=== PATIENT | female | born 1985 | race Caucasian/White ===

== ENCOUNTER 2022-08-22 16:29 | Emergency (ER) | payer OTHER ==
[~2022-08-22] VITALS: Ht 167.6 cm; Wt 93.4 kg
--- NOTE | 2022-08-22 16:58 | NUR ---
BIBRA, FALL, C/O PAIN LE AREA OF INJURY SWOLLEN TENDER TO TOUCH
[2022-08-22] MEDS ORDERED: HYDROCODONE/APAP 5/325MG TABLET PO ONE (17:30)
[2022-08-22] MEDS ORDERED: HYDROCODONE/APAP 5/325MG TABLET ONE (17:33)
[2022-08-22] MEDS ORDERED: HYDR-4303 PO (19:43)
[2022-08-22] MEDS ORDERED: IBUP-1955 PO (19:43)
[2022-08-22] MEDS ORDERED: IBUPROFEN 600 MG TABLET ONE (19:51)
[2022-08-22] MEDS ORDERED: IBUPROFEN 600 MG TABLET PO ONE (20:00)
[2022-08-22 21:01] VITALS: BP 122/66
--- NOTE | 2022-08-22 21:01 | NUR ---
Patient discharged to home in stable condition. Written and verbal after care instructions given. Patient verbalizes understanding of instruction.
== END 2022-08-22 21:01 | disposition home or self-care (01) ==
LOC: ER 16:37
DX: S82.61XA Displaced fracture of lateral malleolus of right fibula, initial encounter for closed fracture (principal); S82.65XA Nondisplaced fracture of lateral malleolus of left fibula, initial encounter for closed fracture; Z79.899 Other long term (current) drug therapy; W18.30XA Fall on same level, unspecified, initial encounter; Y93.89 Activity, other specified; Y92.89 Other specified places as the place of occurrence of the external cause; Y99.8 Other external cause status
CPT/HCPCS: 73590-TC; 73610-TC; 73630-TC